=== PATIENT | female | born 1970 | race Caucasian/White ===

== ENCOUNTER 2019-05-08 19:35 | Emergency (ER) | payer MEDICAID ==
[~2019-05-08] VITALS: Ht 152.4 cm; Wt 112.5 kg
[2019-05-08 19:40] VITALS: Ht 152.4 cm; Wt 112.5 kg
[2019-05-08 22:50] VITALS: BP 106/69
== END 2019-05-08 22:50 | disposition home or self-care (01) ==
LOC: ED 19:35
DX: J18.9 Pneumonia, unspecified organism (principal)
CPT/HCPCS: 87804